=== PATIENT | female | born 1975 | race Caucasian/White ===

== ENCOUNTER 2018-07-14 05:42 | Inpatient (IN) ==
[2018-07-14] MEDS ORDERED: ZOFRAN IV PRN (12:11)
--- NOTE | 2018-07-14 12:53 | Diag Imaging Result Doc PS360 ---
CHEST-2 VIEWS - 07/14/2018 INDICATION: r/o pna COMPARISON: 08/09/2016 FINDINGS: There are widespread ill-defined infiltrates in the lung bases diffusely and bilaterally. Heart size is mildly enlarged. Ulnar vascularity appears grossly normal. No pneumothorax or pleural effusion. IMPRESSION: Extensive bibasilar infiltrates compatible with pneumonia or pulmonary edema. Heart size is mildly enlarged. Electronically signed by Elias Solano 07/14/2018 12:50 PM
--- NOTE | 2018-07-14 12:54 | Diag Imaging Result Doc PS360 ---
ABDOMEN FLAT/UPRIGHT - 07/14/2018 INDICATION: abd pain COMPARISON: 03/21/2016 FINDINGS: There is a nonobstructive bowel gas pattern. No free air or abdominal calcifications. There are stable surgical clips in the right upper quadrant in the pelvis. IMPRESSION: No acute disease. Electronically signed by Elias Solano 07/14/2018 12:52 PM
--- NOTE | 2018-07-14 12:59 | EKG Report ---
Test Performed on : 07/14/2018 12:51:46 PM Test Reason : new admission Blood Pressure : / mmHG Vent. Rate : 082 BPM Atrial Rate : 082 BPM P-R Int : 170 ms QRS Dur : 078 ms QT Int : 384 ms P-R-T Axes : 055 040 041 degrees QTc Int : 448 ms Normal sinus rhythm. Normal ECG When compared with ECG of 08-DEC-2017 03:54, No significant change was found Confirmed by Marvel Harrell MD ([id number]) on 07/15/2018 6:57:45 AM
[2018-07-14 13:11] LABS: BASO# 0.02 X1000 (0.0-0.2); BASO% 0.2 % (0.0-0.8); EOS% 0.9 % (0.0-10.0); HEMATOCRIT 41.7 % (37.0-47.0); HEMOGLOBIN 13.8 g/dL (12.0-16.0); IMM GRAN# 0.04 X1000 (0.0-0.04); IMM GRAN% 0.3 % (0.0-0.5); LYMPH# 2.03 X1000 (1.2-3.4); LYMPH% 17.8 % (20.5-51.1); MCH 31.2 PG (27-31); MCHC 33.1 g/dL (33-37); MCV 94.1 FL (81-99); MONO# 0.46 X1000 (0.11-0.59); MPV 11.1 FL (7.4-10.4); NEUT# 8.78 X1000 (1.4-6.5); NEUT% 76.8 % (42.2-75.2); PLT 328 X1000 (130-400); RBC 4.43 XMIL (4.2-5.4); RDW 16.3 % (11.5-14.5); WBC 11.43 X1000 (4.8-10.8)
[2018-07-14 13:18] LABS: INR 0.92; PROTIME 13.1 Seconds (11.0-16.0)
[2018-07-14 13:19] LABS: PTT 38.5 Seconds (22.3-41.8)
[2018-07-14] MEDS: TYLENOL PO PRN ×2 (13:34→18:47)
[2018-07-14] MEDS: FLAGYL 500 MG/NS 500 MG/100 ML IVPB IV SCH ×3 (13:34→23:44)
[2018-07-14] MEDS: NS 1,000 ML IV SCH (13:34)
[2018-07-14] MEDS: SODIUM CHLORIDE 0.9% INJ SCH ×2 (13:35→23:44)
[2018-07-14] MEDS: PROTONIX IV SCH ×2 (13:35→23:44)
[2018-07-14] MEDS: NICODERM PATCH TD SCH (13:36)
[2018-07-14] MEDS: CARAFATE LIQUID PO SCH ×2 (13:36→21:49)
[2018-07-14 13:45] LABS: HEMOGLOBIN A1C 5.6 % (4.8-6.0)
[2018-07-14 13:48] LABS: AMYLASE 43 U/L (20-200); LIPASE 25 U/L (13-60)
[2018-07-14 13:52] LABS: AGAP 11; ALB/GLOB RATIO 1.3; ALBUMIN 4.2 g/dL (3.5-5.0); ALKALINE PHOSPHATASE 110 U/L (32-104); BUN 7 mg/dL (8-22); CALCIUM 8.5 mg/dL (8.8-10.2); CHLORIDE 108 mmol/L (98-107); CK PROFILE 65 U/L (24-173); COSMO 280; CREATININE 0.6 mg/dL (0.5-0.9); ESTIMATED GFR > 60; GLUCOSE 108 mg/dL (70-104); GOT 17 U/L (10-30); GPT 11 U/L (10-36); MAGNESIUM 2.2 mg/dL (1.5-2.7); POTASSIUM 3.9 mmol/L (3.5-5.1); SODIUM 141 mmol/L (136-145); TCO2 22 mmol/L (25-35); TOTAL BILIRUBIN 0.17 mg/dL (0.20-1.00); TOTAL PROTEIN 7.5 g/dL (6.3-8.3)
--- NOTE | 2018-07-14 14:34 | HISTORY AND PHYSICAL ---
PRIMARY CARE PHYSICIAN: Dr. Carline Cabrera CHIEF COMPLAINT: Left upper quadrant abdominal pain with nausea, vomiting and some mild diarrhea. HISTORY OF PRESENT ILLNESS: Ms. Georgina Rocha is a 43-year-old female with a medical history of peptic ulcer disease, GERD, who presented approximately 1 week ago on 07/08/2018 to [facility] with complaints of left upper quadrant abdominal pain in addition to generalized abdominal discomfort along with nausea, vomiting and some occasional diarrhea. She denies fever but states she has had the occasional chills. When they did a CT at that time, it showed a left colon diverticulitis. She was placed on oral Flagyl and discharged home. Apparently the pain did not improve, and it actually gradually increased with continued chills, poor appetite, lightheaded, occasional diarrhea that was brown in color, emesis green-yellow in color. She went to an outpatient clinic on 07/13/2018. There, she received an intramuscular antibiotic and was sent home on oral Bactrim. Given the increasing pain, she represented to [facility] around 2:00 a.m. today on 07/14/2018 with these complaints. They did a repeat abdominopelvic CT with contrast which showed that there was a diverticulum that was present in the second portion of the duodenum. There were air filled levels but nondilated colon. No mention of diverticulitis. Her white count continued to be elevated at 16,000. But no results to view if there was lactate or fever. Given her hospital location, she was transferred here for further workup by Gastroenterology. Her value stream leader is Dr. Durham who preformed an EGD and colonoscopy in 12/2017 which she verbally says results given to her was she had precancerous cells, diverticulosis and gastric ulcers and is supposed to follow up with Dr. Durham. So we will put a consult in for him. Currently, vital signs are stable. Other labs are pending along with imaging. After admission to [facility] at 2:00 this morning, the patient received Zosyn 3.375 g around 0400 and also received a couple of doses of Dilaudid 1 mg doses, also received Zofran, 20 of potassium for a 3.2, and she was transferred here on 3 L nasal cannula to maintain satisfactory over 92%. PAST MEDICAL HISTORY: 1. Migraines. 2. Fibromyalgia. 3. Chronic back and neck pain and pelvic pain. 4. Depression, anxiety and bipolar. 5. Arthritis. 6. GERD. 7. Peptic ulcer disease. 8. Chronic constipation. 9. History of diverticulitis. 10.Diabetes mellitus type 2. 11.COPD. 12.Urinary incontinence. 13.Restless leg syndrome. PAST SURGICAL HISTORY: 1. Colonoscopy and EGD in 12/[address] Durham. 2. Hysterectomy. 3. Cholecystectomy. 4. Ventral hernia and umbilical hernia repair. 5. Six bladder surgeries. 6. Bunionectomy. 7. Multiple exploratory laps where one included removing an ovary and another included endometrial scar tissue, she states approximately around 5 or 6 of those surgeries. 8. Bilateral tubal ligation. SOCIAL HISTORY: She smokes 1-1/2 packs per day and has so for 20 years. Alcohol is only once a year. Denies any illicit drug use. States that her and her have been about a month, but they live together with their 2 children, ages 12 and 14, and is currently employed at [employer]. FAMILY HISTORY: Mother's side of the family include myocardial infarction, strokes and uterine cancer. Father's side of the family includes coronary artery disease and T3 cell cancer. ALLERGIES: BuSpar, Neurontin and Lyrica. HOME MEDICATIONS: Need to be reconciled by nursing staff. We will have to follow up. REVIEW OF SYSTEMS: A 14-point review of systems is complete, and all were negative except for those mentioned in the HPI. Positives are left upper quadrant abdominal pain that is constant, nausea and vomiting with green-yellow emesis. Positive for chills, lightheadedness, poor appetite, occasional diarrhea that is brown in color with the last bowel movement being yesterday morning. PHYSICAL EXAMINATION: VITAL SIGNS: Temperature is 98.0, heart rate 72, respiratory rate not recorded , blood pressure 104/49, O2 saturation is not recorded. She is 4 feet 10 inches tall, 173 pounds. BMI is 36.2. They do have her documented as being on room air. GENERAL: Ms. Georgina Rocha is a 43-year-old female who looks much older than her stated age, but she is in no acute distress. She is able to answer questions appropriately. HEENT: Atraumatic and normocephalic. Pupils are equal, round and reactive to light. Extraocular movements were intact. Mucous membranes are moist. She has poor dentition. NECK: Trachea midline. CARDIOVASCULAR: S1, S2. Regular rate and rhythm. No rubs, gallops or murmurs. No lower extremity edema. There are +2 dorsalis and radial pulses. Negative JVD or carotid bruits. PULMONARY: Clear to auscultation with bilateral breath sounds. No accessory muscle use or work of breathing noted. Currently on room air. GASTROINTESTINAL: Soft. Tender in all 4 quadrants with worsening tenderness in the left upper quadrant. Positive bowel sounds x4. EXTREMITIES: Moves all extremities equally with full range of motion. NEUROLOGICAL: Alert and oriented x4. Follows commands. Sensory is intact. SKIN: Warm, dry and intact. DIAGNOSTIC DATA: White blood cells 11,000 here, she was 16,000 at [facility] this morning. Hemoglobin and hematocrit are 13 and 41 here. Not much change from 14 and 41 at [facility]. Platelet count is 328, and there it was 303. Here, INR is 0.92. All other labs are pending. [facility] BMP showed sodium 138, potassium 3.2, BUN was 9, creatinine 0.5, glucose 146. IMAGING: At [facility] on 07/08/2018, abdominopelvic CT showed left colon diverticulitis. Today on 07/14/2018 at [facility], repeat CT of the abdomen and pelvis showed diverticulum present in the second portion of the duodenum, air fluid levels in nondilated colon which is nonspecific but can be seen with diarrhea. The CD has been sent with the patient and is on the chart. Imaging performed here included abdominal x-ray with no acute disease. Chest x-ray with extensive bibasilar infiltrates compatible with pneumonia or pulmonary edema, and the heart is mildly enlarged. EKG with normal sinus rhythm, rate is 82. QTC is 448. ASSESSMENT AND PLAN: 1. Failed outpatient treatment of diverticulitis. Actually the most recent CT does not show diverticulitis, but she continues to have the abdominal pain with nausea, vomiting and diarrhea. We will continue her on Flagyl and Levaquin IV. She did received a dose of Zosyn 3.375 at [facility]. They treated her abdominal pain with Dilaudid 1 mg doses and her nausea with Zofran. She has an elevated white blood cell count of 16,000 there and 11,[address] Durham, her value stream leader, will be consulted. 2. Community acquired pneumonia versus healthcare associated pneumonia. She denies having any phlegm. She does have a cough. She did require oxygen at [facility]. We will check her O2 saturation and reapply oxygen as needed. She is also going to be on Levaquin which would help with the pneumonia. There is also some question of if it is pulmonary edema, so we will get an echocardiogram and check her ProBNP. 3. Chronic obstructive pulmonary disease history. No obvious signs of exacerbation. She states she takes nebulizers at home or inhalers at home and that she normally runs 90% on her O2 saturations. So we will evaluate the ABG. 4. Chronic pain syndrome with fibromyalgia, but the pain is specifically neck, back and pelvic. Apparently she takes Percocet at home for this. Home medications need to be reverified, but we will resume once they are. 5. Bipolar disorder. We will resume home medications once verified. 6. Anxiety and depression. See previous number. 7. Diabetes mellitus type 2. We will do pattern blood glucoses and sliding scale insulin. 8. Tobacco abuse. Cessation discussed. She is requesting a nicotine patch which we will add to her medication regimen. 9. DVT prophylaxis with SCDs for now. Dictated by MONET Dugan for Harry Godinez MD Addendum: Patient seen and examined by myself. Agree with MONET note. It reflects my assessment and plan Patient is being admitted to hospital for acute diverticulitis. That was the report from [facility]. Patient has left lower abdomen pain. Will start Levaquin and Flagyl, check CBC daily and because of symptoms suggesting pneumonia will order a CT of chest and will go from there. cc: MONET Dugan MD Manish Arora, MD Francene Gayle, MD MTDD
[2018-07-14] MEDS: LEVAQUIN 750 MG in NS 150 ML IV SCH ×2 (15:20→15:21)
[2018-07-14] MEDS: MORPHINE IV PRN ×3 (15:21→21:55)
--- NOTE | 2018-07-14 15:32 | GASTROENTEROLOGY CONSULTATION ---
DATE: 07/14/2018 REASON FOR CONSULTATION: Left upper quadrant pain, question diverticulitis. HISTORY OF PRESENT ILLNESS: Ms. Georgina Rocha is a 43-year-old woman with a history of insulin dependent diabetes, bipolar disorder, chronic back pain, asthma, migraines, history of diverticulitis and colonic polyps who presents with 8 days of left upper quadrant pain. The patient reports that about 8 days ago she developed left upper quadrant pain that is constant, up to 7 out of 10 in severity with associated chills, sweats and over the last couple of days nonbloody, nonbilious emesis. She was seen at the outside facility 6 days ago and underwent a CT scan that revealed diverticulitis as per her report. She was started on Flagyl and medication for abdominal pain. Since then she has continued to have pain despite compliance with antibiotics. She denies any changes in her bowel habits, rectal bleeding, melena, hematemesis. She denies chest pain. She does report some shortness of breath which she attributes to splinting from her pain. She had a colonoscopy in February [address] Durham that revealed pre cancerous polyps and diverticulosis. PAST MEDICAL HISTORY: Hyperlipidemia, bipolar disorder, migraines, anxiety, chronic back pain, insulin dependent diabetes, asthma. PAST SURGICAL HISTORY: Hernia repair, hysterectomy, tubal ligation, 6 bladder surgeries. MEDICATIONS: Lamictal, lithium, Zoloft, Singulair, Zyrtec, folic acid, Tribeza, Trulance, Percocet, Aleve as needed, which she does not take frequently. ALLERGIES: Lyrica, Neurontin, BuSpar. FAMILY HISTORY: No family history of GI malignancies or diseases. SOCIAL HISTORY: She is a bho-euhz-luu-day smoker. No alcohol or drug use. REVIEW OF SYSTEMS: As per HPI, otherwise 12-point review of systems was negative. PHYSICAL EXAMINATION: VITAL SIGNS: Temperature 98.0, heart rate 72, blood pressure 104/49, O2 saturation not recorded. GENERAL: The patient is awake, alert and oriented in no acute distress. HEENT: Sclerae are anicteric. Moist mucous membranes. NECK: Supple. No JVD or lymphadenopathy. LUNGS: Clear to auscultation bilaterally. No wheezing. CARDIOVASCULAR: Regular rate and rhythm. No murmurs, rubs or gallops. ABDOMEN: Obese. Soft. Bowel sounds present. Tenderness to palpation in the left upper quadrant. No right lower quadrant or left lower quadrant abdominal pain. No ascites. EXTREMITIES: No clubbing, cyanosis or edema. NEUROLOGIC: Nonfocal. PSYCHIATRIC: Normal affect. LABORATORY DATA: White count 11.43, hemoglobin 13.8, platelets 328,000. INR 0.92. Sodium 141, potassium 3.8, chloride 108, bicarbonate 22, BUN 7, creatinine 0.6, glucose 108. LFTs only notable for an alkaline phosphatase of 110. CRP 41. Lipase 25. Lactate 0.8. TSH 1.98. CT of the abdomen and pelvis done at an outside hospital this morning showed air fluid levels in a nondilated colon with diverticulosis and no diverticulitis. No other acute process found. Abdominal x-ray was negative. Chest x-ray showed extensive bibasilar infiltrates compatible with pneumonia versus pulmonary edema. Heart size is mildly enlarged. ASSESSMENT AND PLAN: 1. Ms. Georgina Rocha is a 43-year-old woman with a history of diverticulitis who presents with approximately one week of left upper quadrant pain and associated nausea, vomiting and subjective fevers. At outside hospital this morning she was found to have leukocytosis and mild hypokalemia. CT of abdomen and pelvis there did not show any evidence of acute diverticulitis, pancreatitis or any other acute GI process. There were some air fluid levels in the colon but no signs of any obstruction. She has received IV fluids here as well as pain medications. She has been started on Levaquin and Flagyl empirically. She is on a clear liquid diet. Her symptoms are atypical for diverticulitis given the location. She has no lower abdominal pain on exam or by history. We will continue to monitor for improvement of symptoms with empiric antibiotics. If there is no improvement, then we will consider doing an upper GI endoscopy while in house. 2. Pulmonary edema versus pneumonia. The patient is currently on Levaquin. She is getting an echocardiogram for evaluation of underlying cardiac disease. 3. Bipolar disorder. Continue home medications. 4. Insulin dependent diabetes. Recommend holding home medications and keeping her on sliding scale insulin. We will follow with you. Please call with any questions or concerns.
[2018-07-14] MEDS: HUMULIN R SUBQ SCH ×2 (16:30→21:46)
--- NOTE | 2018-07-14 17:59 | Diag Imaging Result Doc PS360 ---
EXAM: CT THORAX W/O CONTRAST HISTORY: r/o pna TECHNIQUE: CT chest without contrast COMPARISON: None. FINDINGS: The heart is mildly enlarged. No pleural effusions. No thoracic aortic aneurysm. There are small mediastinal nodes. There are increased interstitial markings throughout both lungs. No consolidation. No bronchiectasis. Limited images through the upper abdomen reveal fatty infiltration of the liver and a cholecystectomy. IMPRESSION: Nonspecific bilateral infiltrates This exam was performed using automated exposure control, adjustment of mA or kV according to patient size, and/or use of iterative reconstruction technique. Electronically signed by Jam Hammond 07/14/2018 5:57 PM
[2018-07-14 19:10] LABS: URINE SOURCE CLEAN CATCH
[2018-07-14 19:18] LABS: BILIRUBIN URINE NEGATIVE (NEGATIVE); BLOOD URINE NEGATIVE (NEGATIVE); COLOR STRAW; GLUCOSE URINE NEGATIVE (NEGATIVE); KETONE URINE NEGATIVE (NEGATIVE); LEUKOCYTES URINE NEGATIVE (NEGATIVE); NITRITE URINE NEGATIVE (NEGATIVE); PROTEIN URINE NEGATIVE (NEGATIVE); TURBIDITY URINE CLEAR (CLEAR); UROBILINOGEN URINE NORMAL (NORMAL)
[2018-07-14 19:20] LABS: UR EPITHELIAL CELLS <10 /HPF (<10); URINE BACTERIA NEGATIVE /HPF; URINE RBC <10 /HPF (<10); URINE WBC <10 /HPF (<10)
[2018-07-15] MEDS: MORPHINE IV PRN ×4 (00:55→12:52)
[2018-07-15] MEDS: CARAFATE LIQUID PO SCH ×4 (01:00→22:04)
[2018-07-15] MEDS: FLAGYL 500 MG/NS 500 MG/100 ML IVPB IV SCH (05:44)
[2018-07-15] MEDS: TYLENOL PO PRN (06:25)
[2018-07-15] MEDS: HUMULIN R SUBQ SCH ×3 (06:26→16:21)
[2018-07-15 06:58] LABS: BASO# 0.02 X1000 (0.0-0.2); BASO% 0.1 % (0.0-0.8); EOS# 0.12 X1000 (0.0-0.7); EOS% 0.8 % (0.0-10.0); HEMATOCRIT 41.5 % (37.0-47.0); HEMOGLOBIN 13.2 g/dL (12.0-16.0); IMM GRAN# 0.03 X1000 (0.0-0.04); IMM GRAN% 0.2 % (0.0-0.5); LYMPH# 1.73 X1000 (1.2-3.4); LYMPH% 11.2 % (20.5-51.1); MCH 30.6 PG (27-31); MCHC 31.8 g/dL (33-37); MCV 96.1 FL (81-99); MONO# 0.71 X1000 (0.11-0.59); MONO% 4.6 % (1.7-9.3); MPV 11.2 FL (7.4-10.4); NEUT# 12.81 X1000 (1.4-6.5); NEUT% 83.1 % (42.2-75.2); PLT 281 X1000 (130-400); RBC 4.32 XMIL (4.2-5.4); RDW 16.6 % (11.5-14.5); WBC 15.42 X1000 (4.8-10.8)
[2018-07-15 07:04] LABS: INR 0.96; PROTIME 13.5 Seconds (11.0-16.0)
[2018-07-15 07:05] LABS: PTT 35.1 Seconds (22.3-41.8)
[2018-07-15 07:29] LABS: AGAP 11; ALB/GLOB RATIO 1.2; ALBUMIN 4.1 g/dL (3.5-5.0); ALKALINE PHOSPHATASE 193 U/L (32-104); BUN 4 mg/dL (8-22); CALCIUM 9.1 mg/dL (8.8-10.2); CHLORIDE 107 mmol/L (98-107); COSMO 278; CREATININE 0.5 mg/dL (0.5-0.9); ESTIMATED GFR > 60; GLUCOSE 96 mg/dL (70-104); GOT 37 U/L (10-30); GPT 25 U/L (10-36); POTASSIUM 3.9 mmol/L (3.5-5.1); SODIUM 141 mmol/L (136-145); TCO2 23 mmol/L (25-35); TOTAL BILIRUBIN < 0.15 mg/dL (0.20-1.00); TOTAL PROTEIN 7.4 g/dL (6.3-8.3)
[2018-07-15] MEDS: DUONEB (A & A) INH PRN (08:30)
--- NOTE | 2018-07-15 09:48 | ECHO REPORT ---
ORDER DATE: 07/14/2018 MEASUREMENTS: Left ventricular end-diastolic diameter 4.0, end systolic diameter 1.1, posterior wall thickness 1.1, end systolic diameter 2.5, left atrium 3.9, aortic root 2.4. SUMMARY: 1. Adequate quality study. 2. Aortic valve is trileaflet and opens adequately on 2-dimensional images. Peak gradient across aortic valve is 20 to 25 mmHg in the setting of hyperdynamic left ventricular function. Mitral, tricuspid and pulmonic valves are without evidence of structural abnormality with trace tricuspid regurgitation and trace pulmonic insufficiency. The aortic root is normal size. 3. Normal left ventricular chamber size with upper normal wall thickness demonstrated. The left ventricle is hyperdynamic with estimated left ventricular ejection fraction greater than 70%. No regional wall motion abnormalities are evident. Doppler suggests grade 1 left ventricular diastolic dysfunction. Left atrium is upper normal in size. The right atrium and right ventricle are normal size with grossly preserved right ventricular systolic function. 4. No pericardial effusion. 5. Appearance of the inferior vena cava suggests normal central venous pressure. CONCLUSIONS: 1. No significant valvular abnormality evident. Increased velocities across aortic valve, probably the result of hyperdynamic left ventricular function. 2. Hyperdynamic left ventricular function with estimated left ventricular ejection fraction greater than 70%. 3. Grade 1 left ventricular diastolic dysfunction suggested. 4. Upper normal left atrial size. cc: MD Shweta Olmos CRNP
[2018-07-15] MEDS: NICODERM PATCH TD SCH (10:05)
[2018-07-15] MEDS: NS 1,000 ML IV SCH (10:05)
--- NOTE | 2018-07-15 10:05 | PROVIDER PROGRESS NOTE ---
Progress Note - - SUBJECTIVE: No acute overnight events. Afebrile. Patient reports productive cough and pleuritic LUQ pain. No N/V, lower abdominal pain, rectal bleeding. She is tolerating clears and would like to eat. OBJECTIVE: Last Vital Signs Temp 98.3 F 07/15/18 09:20 Pulse 78 07/15/18 09:20 Resp 22 07/15/18 09:20 BP 125/54 07/15/18 09:20 Pulse Ox 99 07/15/18 09:20 Height 4 ft 10 in Weight 173 lb GEN: awake, alert, NAD HEENT: anicteric, MMM CV: RRR, no murmurs LUNGS: coarse BS bilateral bases ABD: soft, TTP LUQ underneath costal margin; no lower abdominal TTP, BS present EXT: no cce NEURO: nonfocal LABS: 07/15/18 07/15/18 07/15/18 06:35 06:35 06:35 WBC 15.42 H Hgb 13.2 Plt Count 281 INR 0.96 Sodium 141 Potassium 3.9 Chloride 107 Carbon Dioxide 23 L BUN 4 L Creatinine 0.5 AST 37 H ALT 25 Alkaline Phosph[address] chest 07/14/2018 EXAM: CT THORAX W/O CONTRAST HISTORY: r/o pna TECHNIQUE: CT chest without contrast COMPARISON: None. FINDINGS: The heart is mildly enlarged. No pleural effusions. No thoracic aortic aneurysm. There are small mediastinal nodes. There are increased interstitial markings throughout both lungs. No consolidation. No bronchiectasis. Limited images through the upper abdomen reveal fatty infiltration of the liver and a cholecystectomy. IMPRESSION: Nonspecific bilateral infiltrates A/P: Ms. Georgina Rocha is a 43-year-old woman with a history of diverticulitis who presented yesterday with one week of LUQ pain and associated nausea, vomiting and subjective fevers. At outside hospital this morning she was found to have leukocytosis and mild hypokalemia. CT of abdomen and pelvis there did not show any evidence of acute diverticulitis, pancreatitis or any other acute GI process. She describes some productive cough and pleuritic LUQ pain that could be from PNA instead of diverticulitis although CT chest yesterday did not show definitive PNA. #LUQ pain: continue levaquin/flagyl; will start diabetic diet and monitor; if she continues to have LUQ pain or pain that is aggravated by eating; then will consider EGD; otherwise, will continue supportive care; on empiric PPI BID #Possible diverticulitis: CT yesterday negative; on flagyl/levaquin; patient had colonoscopy in 12/2017 #Nonspecific bilateral lung infiltrates: as above #Fatty liver: likely etiology of patient's mildly elevated LFTs #IDDM2: SSI; diabetic diet #BPD: continue home meds Will follow with you. Please call with questions
[2018-07-15] MEDS: PROTONIX IV SCH (12:52)
[2018-07-15] MEDS: ZOSYN 3.375 GM in NS 50 ML IV SCH ×2 (12:52→17:30)
[2018-07-15] MEDS ORDERED: IMITREX PO PRN (13:31)
--- NOTE | 2018-07-15 14:02 | PROGRESS NOTE ---
DATE: 07/15/2018 SUBJECTIVE: Patient still complaining of some left lower pleuritic chest pain that is intermittent, and every time she coughs. Denies any nausea, vomiting or diarrhea. OBJECTIVE: Vital Signs: Temperature 98 degrees, heart rate 71, respiratory rate 16, and blood pressure 126/55. O2 saturation 100% on room air. General: This is a 43-year -old female lying in bed in no acute distress. HEENT: Head is normocephalic, atraumatic. Neck: No JVD noted. No carotid bruits. No lymphadenopathy. No thyromegaly. Cardiovascular: S1, S2 heard. No murmurs, gallops, or rubs. Regular rate and rhythm. Respiratory: Clear bilaterally to auscultation. No work of breathing or using accessory muscles. Abdomen: Soft and nontender to palpation. Bowel sounds present. No organomegaly. Extremities: No clubbing, cyanosis, or edema. Peripheral pulses present in both legs. Neurological: Patient alert and oriented x3. Moves 4 extremities. LABORATORY DATA: White cell count 15.42, hemoglobin 13.2, hematocrit 41.5, and platelets 281. BMP is unremarkable. Alkaline phosphatase 193. ASSESSMENT/PLAN: 1. Failed outpatient treatment of diverticulitis. As we mentioned in our previous note, the most recent CT of the abdomen did not show any diverticulitis. Actually the pain is located mostly just below the rib cage in the thorax. The patient has been started on Flagyl and Levaquin. I think we will stop those medications by now. We will change to different medications GI has been consulted. We will follow recommendations. 2. Community-acquired pneumonia. The CT of the chest did not show any specific consolidation, but there are some infiltrates along with elevated white cell count and cough. I think we will treat it as pneumonia. We will change antibiotics to Zosyn and Teflaro. We will continue to monitor this patient. We will continue to check CBC daily. 3. COPD not on any exacerbation right now not requiring any oxygen supplementation. As of now, we will continue with the same management. 4. Chronic pain syndrome with fibromyalgia. The patient reports she wants to be back on her Percocet that she takes on a regular basis for pain. We agreed with the plan. 5. Bipolar disorder. We will resume [place] today. 6. Anxiety and depression. We will restart home medications today. 7. Diabetes mellitus type 2. We will continue with sliding scale insulin and Accu-Chek before meals and also at bedtime. 8. Tobacco abuse. Cessation discussed again. The patient has a nicotine patch. 9. Deep vein thrombosis prophylaxis. Continue with SCD's. 10. Disposition. We will continue to monitor this patient closely. I think the patient will be able to go home whenever the chest pain is better. cc: Harry Godinez MD MTDD
[2018-07-15] MEDS: PERCOCET-10 PO PRN ×2 (16:19→22:16)
[2018-07-15] MEDS: ZANAFLEX PO SCH (22:04)
[2018-07-15] MEDS: KLONOPIN PO SCH (22:04)
[2018-07-15] MEDS: DESYREL PO SCH (22:04)
[2018-07-15] MEDS: LITHIUM CARBONATE PO SCH (22:04)
[2018-07-16] MEDS: HUMULIN R SUBQ SCH ×5 (01:21→22:43)
[2018-07-16] MEDS: ZOSYN 3.375 GM in NS 50 ML IV SCH ×5 (01:28→22:38)
[2018-07-16] MEDS: PROTONIX IV SCH ×2 (01:29→13:37)
[2018-07-16] MEDS: CARAFATE LIQUID PO SCH ×5 (01:30→21:04)
[2018-07-16] MEDS: NS 1,000 ML IV SCH ×3 (02:42→16:49)
[2018-07-16] MEDS: PERCOCET-10 PO PRN ×3 (04:21→23:28)
[2018-07-16] MEDS: ZANAFLEX PO SCH ×3 (04:22→13:36)
[2018-07-16 08:17] LABS: BASO# 0.03 X1000 (0.0-0.2); BASO% 0.2 % (0.0-0.8); EOS# 0.12 X1000 (0.0-0.7); EOS% 0.8 % (0.0-10.0); HEMATOCRIT 38.2 % (37.0-47.0); HEMOGLOBIN 12.3 g/dL (12.0-16.0); IMM GRAN# 0.04 X1000 (0.0-0.04); IMM GRAN% 0.3 % (0.0-0.5); LYMPH# 2.08 X1000 (1.2-3.4); LYMPH% 13.2 % (20.5-51.1); MCH 30.8 PG (27-31); MCHC 32.2 g/dL (33-37); MCV 95.7 FL (81-99); MONO# 0.68 X1000 (0.11-0.59); MONO% 4.3 % (1.7-9.3); MPV 11.3 FL (7.4-10.4); NEUT# 12.75 X1000 (1.4-6.5); NEUT% 81.2 % (42.2-75.2); PLT 283 X1000 (130-400); RBC 3.99 XMIL (4.2-5.4); RDW 16.2 % (11.5-14.5)
[2018-07-16 08:48] LABS: AGAP 11; BUN 10 mg/dL (8-22); CALCIUM 9.3 mg/dL (8.8-10.2); CHLORIDE 104 mmol/L (98-107); COSMO 279; CREATININE 0.6 mg/dL (0.5-0.9); ESTIMATED GFR > 60; GLUCOSE 106 mg/dL (70-104); POTASSIUM 4.2 mmol/L (3.5-5.1); SODIUM 140 mmol/L (136-145); TCO2 25 mmol/L (25-35)
[2018-07-16] MEDS: DITROPAN XL PO SCH (10:38)
[2018-07-16] MEDS: FOLIC ACID PO SCH (10:39)
[2018-07-16] MEDS: LAMICTAL PO SCH (10:40)
[2018-07-16] MEDS: LIPITOR PO SCH (10:40)
[2018-07-16] MEDS: NICODERM PATCH TD SCH (10:40)
[2018-07-16] MEDS: LATUDA PO SCH (10:40)
[2018-07-16] MEDS: PATIENT'S OWN MED PO SCH (10:41)
[2018-07-16] MEDS: SINGULAIR PO SCH (10:41)
[2018-07-16] MEDS: ZOLOFT PO SCH (10:41)
[2018-07-16] MEDS: CULTURELLE PO SCH ×2 (10:42→21:03)
--- NOTE | 2018-07-16 12:38 | GASTROENTEROLOGY PROGRESS NOTE ---
DATE: 07/16/2018 SUBJECTIVE: The patient is resting in bed. She complains of discomfort in the left lower chest area, which is worse after coughing. This is likely pleuritic chest pain or musculoskeletal chest pain. She is moving her bowels. She denies any fevers, rigors, or chills. OBJECTIVE: Vital signs: Temperature 98.2 degrees, pulse rate 79, respiratory rate 20, blood pressure 110/60, saturating 94% on 3 nasal cannula. General Appearance: The patient is moderately built, well nourished, lying in bed, in no acute distress. HEENT: No pallor. No icterus. Pupils equal, reactive to light and accommodation. Neck: Supple. Abdomen: Soft. Mild localized in the left lower chest area and the left upper quadrant area. No rebound or guarding. Extremities: No cyanosis or clubbing. Neurologic: She is alert, awake, oriented. DIAGNOSTIC STUDIES: Hemoglobin 12.3, hematocrit 38.2, white count of 15.7, platelet count of 283,000. Sodium 140, potassium 4.2, chloride 104, bicarbonate 25, anion gap 11, BUN of 10, creatinine 0.6, glucose of 106, calcium is 9.3. Blood culture x2 negative at 48 hours from 07/15/2018. IMPRESSION AND PLAN: 1. Reported recurrent bouts of diverticulitis. This is the 2nd admission, although the CT scan during this admission did not show evidence of diverticulitis. The patient had colonoscopy done in November or December 2017, which showed evidence of diverticulosis and constipation and reflux disease. We will obtain records from our office. She will continue on antibiotics for now. We will start her on Culturelle 1 capsule p.o. b.i.d. 2. Community-acquired pneumonia, likely causing pleuritic chest pain. She is on antibiotics per the primary team. 3. Chronic smoker. Patient counseled to quit smoking. 4. Chronic obstructive pulmonary disease (COPD). Aware. 5. Chronic pain. Aware. 6. Fibromyalgia. 7. Bipolar disorder. Being managed by primary team. 8. Anxiety and depression. Aware. 9. Type 2 diabetes, on sliding scale insulin. 10. Deep vein thrombosis (DVT) prophylaxis. SCDs. 11. Gastrointestinal (GI) prophylaxis. PPIs. The above plan was discussed with the patient, and all questions answered. cc: MD Harry Zamora MD
--- NOTE | 2018-07-16 14:30 | PROGRESS NOTE ---
DATE: 07/16/2018 SUBJECTIVE: Patient reports feeling definitely much better. Less left lower pleuritic chest pain. The patient has a good appetite. No nausea or vomiting anymore. No abdominal pain. OBJECTIVE: Vital Signs: Temperature 98.2 degrees, heart rate 79, respiratory rate 18, blood pressure 109/55, O2 saturation 98% on 2 L nasal cannula. General examination: This is a 43- year-old female lying in bed, in no acute distress. HEENT: Head is normocephalic, atraumatic. Neck: No JVD noted. No carotid bruits. No lymphadenopathy. No thyromegaly. Cardiovascular: S1, S2 heard. No murmurs, gallops, or rubs. Regular rate and rhythm. Respiratory: Clear bilaterally to auscultation. No work of breathing or using accessory muscles. Abdomen: Soft. Nontender to palpation. No signs of peritoneal irritation. No organomegaly noted. Extremities: No clubbing, cyanosis, or edema. Peripheral pulses present in both legs. Neurological: The patient is alert and oriented x3. Moves 4 extremities. LABORATORY DATA: White cell count 15.7, hemoglobin 12.3, hematocrit 38.2, platelets 283,000. Normal BMP. ASSESSMENT AND PLAN: 1. Failure of outpatient treatment for diverticulitis. I think at this point patient does not have diverticulitis. There are no findings on the recent CT of the abdomen or any abdominal pain at this time. Patient is feeling better. GI is following this patient. We will follow recommendations. I do not think they are going to do any procedure while this patient is in the hospital. 2. Community-acquired pneumonia. The patient reports that with Zosyn and Teflaro this pain in the left side is getting better. At this point, we will continue with same management. 3. Chronic obstructive pulmonary disease. Patient is not in any exacerbation. She is not complaining of shortness of breath. We will provide breathing treatment as needed only for shortness of breath. 4. Chronic pain syndrome with fibromyalgia. Aware. Patient is on Percocet which is a home medication. 5. Bipolar disorder. We will continue with lithium. 6. Anxiety and depression. Will continue with home medication. 7. Diabetes mellitus type 2. Will continue with sliding scale insulin and Accu-Chek before meals and also at bedtime. 8. Tobacco abuse cessation discussed with the patient and she acknowledged understanding. 9. Deep vein thrombosis prophylaxis. On SCDs. 10. Disposition. At this point, we will continue with the same management. If the patient's chest pain is getting better, we will discharge her then. cc: Harry Godinez MD
[2018-07-16] MEDS: DESYREL PO SCH (21:03)
[2018-07-16] MEDS: KLONOPIN PO SCH (21:03)
[2018-07-16] MEDS: LITHIUM CARBONATE PO SCH (21:04)
[2018-07-16] MEDS: DUONEB (A & A) INH PRN (22:05)
[2018-07-17] MEDS: PROTONIX IV SCH ×2 (02:17→13:18)
[2018-07-17] MEDS: NS 1,000 ML IV SCH ×2 (02:17→13:27)
[2018-07-17] MEDS: ZOSYN 3.375 GM in NS 50 ML IV SCH ×3 (04:06→13:23)
[2018-07-17] MEDS: PERCOCET-10 PO PRN ×2 (04:07→11:15)
[2018-07-17] MEDS: ZANAFLEX PO SCH ×2 (04:07→13:23)
[2018-07-17] MEDS: CARAFATE LIQUID PO SCH ×3 (04:07→13:27)
[2018-07-17] MEDS: HUMULIN R SUBQ SCH ×2 (06:12→12:19)
[2018-07-17 08:15] LABS: BASO# 0.03 X1000 (0.0-0.2); BASO% 0.2 % (0.0-0.8); EOS# 0.16 X1000 (0.0-0.7); EOS% 1.2 % (0.0-10.0); HEMATOCRIT 39.9 % (37.0-47.0); HEMOGLOBIN 12.9 g/dL (12.0-16.0); IMM GRAN# 0.03 X1000 (0.0-0.04); IMM GRAN% 0.2 % (0.0-0.5); LYMPH# 2.41 X1000 (1.2-3.4); LYMPH% 18.8 % (20.5-51.1); MCHC 32.3 g/dL (33-37); MCV 95.9 FL (81-99); MONO# 0.56 X1000 (0.11-0.59); MONO% 4.4 % (1.7-9.3); MPV 11.4 FL (7.4-10.4); NEUT# 9.63 X1000 (1.4-6.5); NEUT% 75.2 % (42.2-75.2); PLT 294 X1000 (130-400); RBC 4.16 XMIL (4.2-5.4); RDW 15.9 % (11.5-14.5); WBC 12.82 X1000 (4.8-10.8)
[2018-07-17 08:38] LABS: AGAP 12; BUN 10 mg/dL (8-22); CALCIUM 9.8 mg/dL (8.8-10.2); CHLORIDE 104 mmol/L (98-107); COSMO 285; CREATININE 0.6 mg/dL (0.5-0.9); ESTIMATED GFR > 60; GLUCOSE 125 mg/dL (70-104); POTASSIUM 3.7 mmol/L (3.5-5.1); SODIUM 143 mmol/L (136-145); TCO2 27 mmol/L (25-35)
[2018-07-17] MEDS: CULTURELLE PO SCH (09:11)
[2018-07-17] MEDS: FOLIC ACID PO SCH (09:11)
[2018-07-17] MEDS: SINGULAIR PO SCH (09:11)
[2018-07-17] MEDS: LATUDA PO SCH (09:11)
[2018-07-17] MEDS: LIPITOR PO SCH (09:12)
[2018-07-17] MEDS: ZOLOFT PO SCH (09:12)
[2018-07-17] MEDS: LAMICTAL PO SCH (09:12)
[2018-07-17] MEDS: DITROPAN XL PO SCH (09:12)
[2018-07-17] MEDS: NICODERM PATCH TD SCH (09:13)
[2018-07-17] MEDS: PATIENT'S OWN MED PO SCH (09:16)
[2018-07-17] MEDS: DUONEB (A & A) INH PRN ×2 (11:18→15:30)
[2018-07-17 13:21] VITALS: BP 98/47
--- NOTE | 2018-07-17 15:04 | PROVIDER PROGRESS NOTE ---
Progress Note - - DATE 07/17/2018 SUBJECTIVE: No acute overnight events. Afebrile. No N/V/F. She is tolerating diet. She has LUQ pain and some mild SOB. Regular bowel movements. OBJECTIVE Last Vital Signs Temp 97.6 F 07/17/18 11:57 Pulse 71 07/17/18 11:57 Resp 18 07/17/18 11:57 BP 98/47 07/17/18 13:20 Pulse Ox 98 07/17/18 11:57 Height 4 ft 10 in Weight 173 lb GEN: awake, alert, NAD HEENT: anicteric, MMM CV: RRR, no murmurs LUNGS: CTAB ABD: soft NT/ND, NABS EXT: no cce NEURO: nonfocal LABS 07/17/18 07/17/18 07:32 07:32 WBC 12.82 H Hgb 12.9 Plt Count 294 Sodium 143 Potassium 3.7 Chloride 104 BUN 10 Creatinine 0.6 Glucose 125 H A/P: Ms. Georgina Rocha is a 43-year-old woman with a history of diverticulitis who presented yesterday with one week of LUQ pain and associated nausea, vomiting and subjective fevers. At outside hospital this morning she was found to have leukocytosis and mild hypokalemia. CT of abdomen and pelvis there did not show any evidence of acute diverticulitis, pancreatitis or any other acute GI process. She describes some productive cough and pleuritic LUQ pain that could be from PNA instead of diverticulitis, which has likely resolved. #LUQ pain: pleuritic, likely from PNA; on abx; improving #PNA: on abx; improving leukocytosis #Possible diverticulitis: resolved; patient had colonoscopy in 12/2017 #Fatty liver: likely etiology of patient's mildly elevated LFTs #IDDM2: SSI; diabetic diet #BPD: continue home meds She is being discharged today. Will sign off. Please call with questions
[2018-07-17] MEDS ORDERED: PNEUMOVAX 23 IM ONE (15:23)
--- NOTE | 2018-07-17 15:41 | PROVIDER PROGRESS NOTE ---
Progress Note - - DATE 07/17/2018 SUBJECTIVE: OBJECTIVE: LABS: A/P:
--- NOTE | 2018-07-18 09:48 | DISCHARGE SUMMARY ---
ADMISSION DATE: 07/14/2018 DISCHARGE DATE: 07/17/2018 PRIMARY CARE PROVIDER: None. CONSULTATIONS: Dr. Bashir with Gastroenterology PERTINENT PROCEDURES: 1. Abdominal x-ray no acute disease. 2. Chest x-ray extensive bibasilar infiltrates compatible with pneumonia and/or pulmonary edema. Heart size is mildly enlarged. 3. Echocardiogram shows an EF of 70% with grade 1 left ventricular diastolic dysfunction. 4. Chest CT nonspecific bilateral infiltrates. DISCHARGE DIAGNOSES: 1. Reported recurrent bouts of diverticulitis. This is the patient's second admission, although the CT scan during admission did not show evidence of diverticulitis. The patient had a colonoscopy done in the end of the summer of 2017, which showed evidence of diverticulosis, constipation and reflux disease. She was continued on antibiotics as well as Culturelle. This was initially reported as failure of outpatient treatment for diverticulitis. No procedure is planned during this hospitalization improved. 2. Community-acquired pneumonia. The patient has been on Zosyn and Teflaro. 3. Chronic obstructive pulmonary disease without exacerbation. 4. Chronic pain syndrome secondary to fibromyalgia. 5. Bipolar disorder. Continue on lithium. 6. Anxiety and depression. Continue with home medications. 7. Type 2 diabetes. Continue with home regimen. 8. Tobacco abuse. The patient was educated on smoking cessation as well as the means to quit. HOSPITAL COURSE: Briefly, Ms. Rocha is a 43-year-old female who carries a past medical history of peptic ulcer disease, GERD, and others who presented approximately 1 week ago on 07/08/2018 to [facility] with complaints of left upper quadrant abdominal pain in addition to generalized abdominal discomfort along with nausea, vomiting, and some occasional diarrhea. Per their reported CT at that time, she had a left colon diverticulitis. She was placed on Flagyl and discharged home. However, she did not improve and gradually increased with continued chills, poor appetite, lightheadedness and occasional diarrhea, brown in color. Emesis was green and yellow in color. She went to the outpatient clinic on 07/13/2018 where she received IM antibiotic, and was sent home on oral Bactrim. Given the increase in pain, she re-presented to [facility] at 02:00 in the morning on 07/14/2018 with the same complaints. They did a repeat abdominal pelvic CT with contrast that showed that there was a diverticulum that was present, but no results that mentioned diverticulitis. Her white count continued to be elevated at 16. There was no elevated lactate or fever, and given no GI at [facility] she was transferred to [facility] for GI evaluation. She was admitted for failed outpatient treatment of diverticulitis and community-acquired versus healthcare associated pneumonia. She was initiated on IV antibiotics followed by GI. Given her negative imaging findings on the GI, they continued to treat with IV antibiotics but did not plan for any procedure in the near future. She will continue on p.o. antibiotics and Culturelle. Follow up with GI on an outpatient basis. She has had a stable hospital course and will be discharged home today. VITAL SIGNS: Temperature 97.8 degrees, heart rate 67, respirations 18, blood pressure 92/43, and O2 is 99% on room air. DISCHARGE DIET: Diabetic. DISCHARGE MEDICATIONS: Will be per Dr. Cordon. FOLLOW-UP: Ms. Rocha is being discharged home with self care. She is to follow up with her PCP as well as her culturist. She is take all medications as prescribed. She can return to the ED or call 911 for any worsening of symptoms. Dictated by MONET Gayle for Harry Godinez MD Addendum: Patient seen and examined by myself. Agree with MONET note. It reflects my assessment and plan. Patient is being discharged in stable condition. Will be seen by her primary care doctor in a week as well as GI. cc: MD Dr. Krysten Aden
== END 2018-07-17 16:42 | disposition home or self-care (01) | DRG 194 ==
LOC: DIRADM 05:42 → SUATTDRO 05:42 → 3N 12:07
PROVIDERS: ATTEND Internal Medicine
CPT/HCPCS: 71020; 71046; 71250; 74019; 74020; 80048; 80053; 80061; 81001; 82150; 82550; 82948; 83036; 83605; 83690; 83721; 83735; 83880; 84443; 84484; 85025; 85610; 85730; 86140; 87040; 90732; 93005; 93010; 93306; 94640; 94761; A9270; C9113; J1956; J2270; J2405; J2543; J7030; S0030; S0164; XXXXX